=== PATIENT | female | born 1995 | race Caucasian/White ===

== ENCOUNTER 2019-09-19 20:31 | Emergency (ER) | payer OTHER ==
[~2019-09-19] VITALS: Ht 154.9 cm; Wt 47.7 kg
[2019-09-19 20:32] VITALS: BP 131/74
[2019-09-19] MEDS ORDERED: ZYRTTAB8 PO (20:39)
[2019-09-19] MEDS ORDERED: KETOROLAC 30 MG/ML VIAL (J1885) IV ONE (23:45)
[2019-09-19] MEDS ORDERED: ONDANSETRON 4MG/2ML VIAL (J2405) IV ONE (23:45)
[2019-09-19] MEDS ORDERED: NS 1,000 ML IV ONE (23:45)
[2019-09-20 00:21] LABS: BASO # 0.1 10^3/uL (0.0-0.2); BASO % 0.8 % (0.0-1.0); EOS # 0.3 10^3/uL (0.0-0.5); HEMOGLOBIN 12.6 g/dl (12.0-15.5); LYMPH # 3.9 10^3/uL (1.5-5.0); LYMPH % 48.8 % (24.0-44.0); MEAN CORPUSCULAR HEMOGLOBIN 26.5 pg (27.0-33.0); MEAN CORPUSCULAR HGB CONC 32.3 g/dl (32.0-36.5); MEAN CORPUSCULAR VOLUME 81.9 fl (80.0-96.0); MONO # 0.5 10^3/uL (0.0-0.8); NEUTROPHILS # 3.2 10^3/uL (1.5-8.5); NEUTROPHILS % 40.3 % (36.0-66.0); PLATELET COUNT, AUTOMATED 277 10^3/uL (150-450); RED BLOOD COUNT 4.76 10^6/uL (4.00-5.40)
[2019-09-20 00:46] LABS: ERYTHROCYTE SEDIMENTATION RATE 13 mm/hr (0-20)
--- NOTE | 2019-09-20 00:53 | REPVR ---
PROCEDURE INFORMATION: Exam: CT Head Without Contrast Exam date and time: 09/19/2019 11:34 PM Age: 24 years old Clinical indication: Pain; Other: Blurry eye; Additional info: Conduction hearing aid fell out, tender, R eye blurry TECHNIQUE: Imaging protocol: Computed tomography of the head without contrast. Radiation optimization: All CT scans at this facility use at least one of these dose optimization techniques: automated exposure control; mA and/or kV adjustment per patient size (includes targeted exams where dose is matched to clinical indication); or iterative reconstruction. COMPARISON: No relevant prior studies available. FINDINGS: Brain: No CT evidence of acute intracranial hemorrhage or acute territorial infarction. No significant mass effect or midline shift. Basal cisterns patent. Ventricles: Normal in size and configuration. Bones/joints: No acute osseous abnormality. Sinuses: Minimal ethmoid mucosal thickening. Mastoid air cells: Grossly unremarkable. Soft tissues: Grossly unremarkable. IMPRESSION: 1. No CT evidence of acute intracranial pathology. 2. Additional findings, as above. Electronically signed by: Sylvester Cooper On 09/20/2019 00:53:42 AM
[2019-09-20] MEDS ORDERED: CLEO300C2 PO (03:06)
[2019-09-20] MEDS ORDERED: CIPR-249 PO (03:06)
[2019-09-20] MEDS ORDERED: CIPROFLOXACIN 500 MG TAB PO ONE (03:15)
[2019-09-20] MEDS ORDERED: CLINDAMYCIN 150 MG CAP PO ONE (03:15)
== END 2019-09-20 03:19 | disposition home or self-care (01) ==
LOC: M ED 20:31
DX: H92.01 Otalgia, right ear (principal); T84.7XXA Infection and inflammatory reaction due to other internal orthopedic prosthetic devices, implants and grafts, initial encounter
CPT/HCPCS: 70450; 80047; 83605; 84702; 85025; 85652; 86140; 87040; 96361; 96374; 96375; 99283; J1885; J2405